=== PATIENT | male | born 1970 | race Caucasian/White ===

== ENCOUNTER 2018-02-16 13:16 | Emergency (ER) | payer SELFPAY ==
[~2018-02-16] VITALS: Ht 180.3 cm; Wt 72.6 kg
[2018-02-16 13:28] VITALS: Ht 180.3 cm; Wt 72.6 kg
[2018-02-16 16:11] VITALS: BP 141/87
== END 2018-02-16 16:11 | disposition home or self-care (01) ==
LOC: ED 13:16
DX: S83.8X2A Sprain of other specified parts of left knee, initial encounter (principal); X58.XXXA Exposure to other specified factors, initial encounter; Y93.89 Activity, other specified; Y92.89 Other specified places as the place of occurrence of the external cause; Y99.8 Other external cause status
CPT/HCPCS: J1630; J2060; Q0092

== ENCOUNTER 2018-07-12 09:21 | Inpatient (IN) | payer SELFPAY ==
[~2018-07-12] VITALS: Ht 180.3 cm; Wt 66.2 kg
[2018-07-12 09:32] VITALS: Ht 180.3 cm; Wt 66.2 kg
[2018-07-12 10:56] LABS: BASOPHIL % 0.1 % (0-2); PLATELET COUNT 245 x10^3mcL (130-400); RED CELL DISTRIBUTION WIDTH 12.7 % (11.5-14.5)
[2018-07-12 11:00] LABS: CALCIUM 8.8 mg/dL (8.5-10.1); CARBON DIOXIDE 27.1 mmol/L (21-32); CHLORIDE SERUM 102 mmol/L (98-107); CREATININE SERUM 0.9 mg/dL (0.7-1.3); GFR1 > 60 mL/min; GLUCOSE SERUM 103 mg/dL (74-106); POTASSIUM SERUM 3.8 mmol/L (3.5-5.1); SODIUM SERUM 134 mmol/L (136-145)
[2018-07-12 11:12] LABS: ALBUMIN 3.6 g/dL (3.4-5.0); ALKALINE PHOSPHATASE 67 U/L (46-116); ALT/SGPT 23 U/L (16-63); AST/SGOT 21 U/L (15-37); BILIRUBIN TOTAL 0.4 mg/dL (0.20-1.00); FREE T4 0.99 ng/dL (0.76-1.46); LIPASE 97 IU/L (73-393)
[2018-07-12] MEDS ORDERED: PEPCID20 MG (14:14)
[2018-07-12 14:58] LABS: T3 TOTAL 1.59 ng/mL
[2018-07-12 15:01] LABS: MAGNESIUM 2.3 mg/dL (1.8-2.4); PHOSPHOROUS 2.9 mg/dL (2.5-4.9)
[2018-07-12 15:03] LABS: CHOLESTEROL/HDL RATIO 2.3
[2018-07-12 15:04] LABS: FREE T4 1.01 ng/dL (0.76-1.46); FREE THYROXINE INDEX 2.6 ug/dL (1.4-4.5); T4(THYROXINE) 8.1 ug/dL (4.7-13.3)
[2018-07-12 15:10] VITALS: BP 119/71
[2018-07-12 19:02] VITALS: BP 97/64
[2018-07-12 20:07] VITALS: BP 134/65
[2018-07-12 23:07] LABS: microscopic required? NO
[2018-07-12 23:23] LABS: UA SPECIFIC GRAVITY 1.015 (1.005-1.035); urine erythrocyte NEGATIVE (NEGATIVE)
[2018-07-12 23:30] LABS: AMPHETAMINE QUAL UR POSITIVE (See below)
[2018-07-13 05:08] VITALS: BP 108/52
[2018-07-13 07:19] LABS: BASOPHIL % 0.8 % (0-2); PLATELET COUNT 233 x10^3mcL (130-400); RED CELL DISTRIBUTION WIDTH 12.9 % (11.5-14.5)
[2018-07-13 07:36] LABS: CALCIUM 8.2 mg/dL (8.5-10.1); CARBON DIOXIDE 24.7 mmol/L (21-32); CHLORIDE SERUM 107 mmol/L (98-107); CREATININE SERUM 0.8 mg/dL (0.7-1.3); GFR1 > 60 mL/min; GLUCOSE SERUM 88 mg/dL (74-106); MAGNESIUM 2.3 mg/dL (1.8-2.4); PHOSPHOROUS 1.8 mg/dL (2.5-4.9); POTASSIUM SERUM 3.9 mmol/L (3.5-5.1); SODIUM SERUM 139 mmol/L (136-145)
[2018-07-13 09:04] VITALS: BP 113/68
[2018-07-13 12:10] VITALS: BP 133/95
[2018-07-13] MEDS ORDERED: PRI20 PO (13:20)
[2018-07-13 14:38] VITALS: BP 133/95
[2018-07-13 22:03] VITALS: BP 145/79
== END 2018-07-14 06:21 | disposition home or self-care (01) | DRG 392 ==
LOC: ED 09:21 → DU 14:16
PROVIDERS: Emergency Medicine; Family Medicine
DX: A08.4 Viral intestinal infection, unspecified (principal); E87.1 Hypo-osmolality and hyponatremia; R07.89 Other chest pain; B19.20 Unspecified viral hepatitis C without hepatic coma; F17.210 Nicotine dependence, cigarettes, uncomplicated; E02 Subclinical iodine-deficiency hypothyroidism; Z90.49 Acquired absence of other specified parts of digestive tract; F15.10 Other stimulant abuse, uncomplicated
CPT/HCPCS: 83880; 84439; 90658; G0480; J0610; J2405; J2765; J3490; J7030; Q0092

== ENCOUNTER 2018-07-19 09:16 | Inpatient (IN) | payer MEDICAID ==
[~2018-07-19] VITALS: Ht 182.9 cm; Wt 65.1 kg
[~2018-07-19 09:16] MED LIST: PEPCID20 MG; PRI20 PO
[2018-07-19 09:27] VITALS: Ht 182.9 cm; Wt 65.1 kg
[2018-07-19 10:16] LABS: BASOPHIL % 0.8 % (0-2); PLATELET COUNT 295 x10^3mcL (130-400); RED CELL DISTRIBUTION WIDTH 13.3 % (11.5-14.5)
[2018-07-19 10:19] LABS: UA SPECIFIC GRAVITY >=1.030 (1.005-1.035); microscopic required? YES; urine erythrocyte 1+ (NEGATIVE)
[2018-07-19 10:32] LABS: AMPHETAMINE QUAL UR POSITIVE (See below)
[2018-07-19 10:58] LABS: CALCIUM 9.5 mg/dL (8.5-10.1); CARBON DIOXIDE 21.8 mmol/L (21-32); CHLORIDE SERUM 104 mmol/L (98-107); GFR1 > 60 mL/min; GLUCOSE SERUM 86 mg/dL (74-106); POTASSIUM SERUM 4.3 mmol/L (3.5-5.1); SODIUM SERUM 139 mmol/L (136-145)
[2018-07-19 11:08] LABS: ALBUMIN 4.1 g/dL (3.4-5.0); ALKALINE PHOSPHATASE 75 U/L (46-116); ALT/SGPT 37 U/L (16-63); AMYLASE 149 U/L (25-115); AST/SGOT 33 U/L (15-37); BILIRUBIN TOTAL 0.6 mg/dL (0.20-1.00); CHOLESTEROL 178 mg/dL (<200); HDL CHOLESTEROL 77 mg/dL (40-60); LIPASE 446 IU/L (73-393); MAGNESIUM 2.4 mg/dL (1.8-2.4); TOTAL PROTEIN, SERUM 8.1 g/dL (6.4-8.2)
[2018-07-19 16:12] VITALS: BP 133/98
[2018-07-20 05:25] LABS: BASOPHIL % 0.9 % (0-2); PLATELET COUNT 281 x10^3mcL (130-400); RED CELL DISTRIBUTION WIDTH 12.6 % (11.5-14.5)
[2018-07-20 05:51] LABS: CALCIUM 8.5 mg/dL (8.5-10.1); CARBON DIOXIDE 22.8 mmol/L (21-32); CHLORIDE SERUM 109 mmol/L (98-107); CREATININE SERUM 0.9 mg/dL (0.7-1.3); GFR1 > 60 mL/min; GLUCOSE SERUM 85 mg/dL (74-106); MAGNESIUM 2.1 mg/dL (1.8-2.4); PHOSPHOROUS 2.2 mg/dL (2.5-4.9); SODIUM SERUM 142 mmol/L (136-145)
[2018-07-20 08:00] VITALS: BP 133/77
[2018-07-20 11:54] VITALS: BP 133/77
== END 2018-07-20 12:44 | disposition left against medical advice (07) | DRG 817 ==
LOC: EDBD 09:16 → ED 09:16 → MU 12:58 → ED 12:58 → IC 12:58 → EDBEDREQ 12:59 → IC 15:40
PROVIDERS: Emergency Medicine; Internal Medicine
PROC: 0HQ1XZZ Repair Face Skin, External Approach (ICD-10-PCS; principal; 2018-07-19)
DX: T43.622A Poisoning by amphetamines, intentional self-harm, initial encounter (principal); N17.0 Acute kidney failure with tubular necrosis; G92 Toxic encephalopathy; K85.90 Acute pancreatitis without necrosis or infection, unspecified; S01.81XA Laceration without foreign body of other part of head, initial encounter; B18.2 Chronic viral hepatitis C; F12.10 Cannabis abuse, uncomplicated; R80.9 Proteinuria, unspecified; Z59.0 Homelessness; F17.210 Nicotine dependence, cigarettes, uncomplicated; X83.8XXA Intentional self-harm by other specified means, initial encounter; Y93.89 Activity, other specified; Y92.810 Car as the place of occurrence of the external cause
CPT/HCPCS: 82962; 90715; G0480; J1630; J1956; J2060; J7030; Q0092

== ENCOUNTER 2018-07-19 10:41 | Emergency (ER) | payer OTHER | END 2018-07-19 15:40 | disposition short-term general hospital (02) | LOC: ED 10:41 | DX: Z02.89 Encounter for other administrative examinations (principal) ==

== ENCOUNTER 2018-09-18 07:37 | Emergency (ER) | payer OTHER ==
[~2018-09-18] VITALS: Ht 177.8 cm; Wt 68.0 kg
[2018-09-18 07:39] VITALS: Ht 177.8 cm; Wt 68.0 kg
[2018-09-18 08:21] VITALS: BP 133/78
== END 2018-09-18 08:34 | disposition home or self-care (01) ==
LOC: ED 07:37
DX: F19.10 Other psychoactive substance abuse, uncomplicated (principal); Z59.0 Homelessness; Z87.19 Personal history of other diseases of the digestive system